=== PATIENT | male | born 1970 | race Caucasian/White ===

== ENCOUNTER 2024-08-12 12:43 | Outpatient (AMB) | payer OTHER, SELFPAY ==
--- NOTE | 2024-08-12 12:57 | MHC.OFFWIV ---
Intake Vital Signs 08/12/24 12:58 Height 5 ft 11 in Weight 198 lb BMI 27.6 BP 134/98 H Blood Pressure Location Lt brachial Position Sitting Pulse 68 Pulse Source Pulse Oximeter Pulse Oximetry (%) 98 Oxygen Delivery Method Room Air Intake Visit Reasons: SHUTTLE HAND RT toe injury Intake Note: Patient here for big toe on right foot pain, he states he takes a martial arts class and a couple weeks ago he turned and kicked someone in the ankle with force and since then it has not felt right Patient Tobacco Use Status: Never used Tobacco Allergies No Known Allergies Allergy (Verified 08/12/24 13:00) Do you need a note to return to daycare/school/sports/work: No HPI HPI Comments History of Present Illness Details Patient is a 54-year-old male who states he has been having right great toe pain for about a month. He states was in his [employer] class when he went to do a violent kick and did not realize there was someone behind him and accidentally kicked a person. He said his toe her immediately but he has been able to walk on it since then. He states it does hurt he has been trying to rest it by wilma taping it but only during his [employer] classes and not any other time. [facility] Social History Patient Tobacco Use Status: Never used Tobacco Review of Systems Const All systems reviewed & are unremarkable except as noted in HPI and below Physical Exam Vital Signs: Last Vital Signs Pulse 68 08/12/24 12:58 BP 134/98 H 08/12/24 12:58 Pulse Ox 98 08/12/24 12:58 Oxygen Delivery Method Room Air 08/12/24 12:58 BMI result Body Mass Index 27.6 Const General: cooperative, healthy appearing, comfortable, no acute distress and well developed Orientation/consciousness: patient oriented x3 Limitations: no limitations HEENT Head: Yes normal to inspection Ears: hearing grossly normal bilaterally General nose exam: Normal external nose present Face and sinus: Yes normal facial exam Eyes General: appearance normal, both eyes and all related structures Neck Neck: Yes normal visual inspection and Yes full ROM Resp Effort & Inspection: normal respiratory effort and able to speak in complete sentences Skin General skin exam: no rashes or lesions noted Neuro General: patient oriented x3 Extrem General: Yes normal to inspection Left lower extremity: foot Details: normal to inspection, tenderness Location: of the great toe Location: at the MTP joint, toes with normal ROM, no edema and vascular exam Details: normal capillary refill; no unusual warmth, no abrasions, no lacerations and no ecchymosis Assessment & Plan Assessment & Plan (1) Metatarsophalangeal (joint) sprain: Code(s): S93.529A - Sprain of metatarsophalangeal joint of unspecified toe(s), initial encounter Qualifiers: Encounter type: initial encounter Qualified Code(s): S93.529A - Sprain of metatarsophalangeal joint of unspecified toe(s), initial encounter Plan: X-ray showed no acute fracture or dislocation, recommended wilma taping and resting ice and Aleve. Plan see above Orders: Orders XR foot RT min 3V Today S93.529A - Sprain of metatarsophalangeal joint of unspecified toe(s), initial encounter Coding Level of Care Code Est Pt Level 3 (30216) Diagnoses Sprain, metatarsophalangeal joint, initial encounter S93.529A Encounter type: initial encounter
[2024-08-12 12:58] VITALS: BP 134/98; PULSE 68; O2SAT 98; BMI 27.6
== END 2024-08-12 13:29 | disposition home or self-care (01) ==
PROVIDERS: PCP Family Medicine; Visit Provider Physician Assistant
DX: S93.529A Sprain of metatarsophalangeal joint of unspecified toe(s), initial encounter (principal)
CPT/HCPCS: 99213

== ENCOUNTER 2024-08-12 13:12 | Outpatient (REF) | payer OTHER, SELFPAY ==
--- NOTE | ~2024-08-12 | XR_ITS ---
EXAMINATION: XR FOOT, RIGHT CLINICAL INFORMATION: Sprain of the MTP joint of the toe. COMPARISON: None available. TECHNIQUE: AP, lateral, and oblique views of the right foot. FINDINGS: Mild 1st MTP osteoarthritis and nonuniform joint space narrowing and marginal osteophytes. A small calcific focus in the lateral margin of the 1st MTP joint may correspond to a capsular calcification or loose body. Additional mild osteoarthritis is present in the interphalangeal joints including the great toe IP joint and second toe DIP joint. No erosions are identified. Midfoot joints appear relatively well preserved. There is osteoarthritis at the talocrural joint which is not well assessed on these views. Soft tissue swelling is noted medial to the 1st MTP joint. XR/XR foot RT min 3V IMPRESSION: Mild 1st MTP osteoarthritis with adjacent soft tissue swelling. No acute fracture or malalignment. Electronically signed by: Mele Bhat MD 08/12/2024 03:17 PM EDT Workstation: [id number]
== END 2024-08-12 13:13 | disposition home or self-care (01) ==
LOC: HO.HMGCX 13:12
PROVIDERS: PCP Family Medicine; Visit Provider Physician Assistant
DX: S93.521A Sprain of metatarsophalangeal joint of right great toe, initial encounter (principal)
CPT/HCPCS: 73630

== ENCOUNTER 2025-01-05 09:54 | Outpatient (AMB) | payer OTHER, SELFPAY ==
--- NOTE | 2025-01-05 10:06 | MHC.PC.OV ---
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 Intake Note: New patient visit Farm Advisor Required: No Allergies No Known Allergies Allergy (Verified 01/05/25 10:06) Medication List - Last Reconciled 01/05/25 by Rad Michael MD No Known Home Meds Tobacco use date assessed: 01/05/25 Dental Screening Dental Screen Date: 01/05/25 Did you have a dental visit in the last 12 months?: Yes Did you have a dental problem in the last 6 months where you did not have access to dental care?: No Was dental information given to patient?: No HPI OFFICE MACHINE SERVICER // Requesting PE HPI Details New?patient Prior?PCP: Dr Charles Last?office?visit/CPE: 3yrs ago Acute?issue(s): PMHx: None/Denies SurgHx: None FHx: Unknown/Unsure SocHx: Nonsmoker, EtOH 2-3 dr on a weekend day. 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 1. Little interest or pleasure in doing things: not at all 2. Feeling down, depressed, or hopeless: not at all 3. Trouble falling or staying asleep, or sleeping too much: not at all 4. Feeling tired or having little energy: not at all 5. Poor appetite or overeating: not at all 6. Feeling bad about yourself - or that you are a failure or have let yourself or your family down: not at all 7. Trouble concentrating on things, such as reading the newspaper or watching television: not at all 8. Moving or speaking so slowly that other people could have noticed. Or the opposite - being so fidgety or restless that you have been moving around a lot more than usual: not at all 9. Thoughts that you would be better off or of hurting yourself in some way: not at all Total score: 0 Depression Screening Interpretation: Negative Depression Screening Done: Yes 84021 - PHQ-9 Billing: Yes Source: Developed by Drs. Cj Pedro, Janki Palencia, Jaskaran Cortes and colleagues, with an educational jared from [employer]. Thrive Questionnaire Date Thrive assessed: 12/29/24 I am a: Patient What is your living situation today?: I have a steady place to live Within the past 12 months, did the food you bought not last and you didn't have the money to get more?: Never true Within the past 12 months, did you worry whether your food would run out before you got money to buy more?: Never true Do you have trouble paying for medicines?: No Do you have trouble getting transportation to medical appointments?: No Do you have trouble paying your heating and electricity bill?: No Do you have trouble taking care of your child, family member or friend?: No Do you have trouble with day-to-day activities such as bathing, preparing meals, shopping, managing finances, etc.?: No Are you currently unemployed and looking for a job?: No Are you interested in more education?: No Please select the resources that you would like help with: None Currently or been in a relationship where the following occur: I choose not to answer THRIVE Score: 0 AUDIT C Alcohol Use Questionnaire (AUDIT-C) 1. How often do you have a drink containing alcohol?: 2-3 times a week 2. How many drinks containing alcohol do you have on a typical day when you are drinking?: 3 or 4 3. How often do you have six or more drinks on one occasion?: Less than monthly Total Score: 5 GERARDO-7 AMB Questionnaire GERARDO-7 Date GERARDO - 7 assessed: 01/05/25 Feeling nervous, anxious, or on edge: 1 = Several days Not being able to stop or control worryin = Not at all Worrying too much about different things: 1 = Several days Trouble relaxin = Not at all Being so restless that it is hard to sit still: 0 = Not at all Becoming easily annoyed or irritable: 1 = Several days Feeling afraid as if something awful might happen: 1 = Several days Total GERARDO-7 score (0-4 normal; 5-9 mild; 10-14 moderate; 15-21 severe): 4 Source: Developed by Drs. Cj Pedro, Janki Palencia, Jaskaran Cortes and colleagues, with an educational jared from [employer]. GERARDO-7 Assessment Billing GERARDO-7 Assessment Tool: GERARDO-7 Assessment 85719 Review of Systems Const Denies chills, Denies fatigue, Denies fever(s), Denies headache(s) and Denies weakness Eyes Denies change in vision ENT Denies dizziness, Denies headache(s), Denies hearing loss, Denies nasal congestion, Denies sinus pain, Denies sinus pressure and Denies sore throat Card Denies chest pain, Denies lightheadedness, Denies dyspnea and Denies other (palpitations) Resp Denies cough, Denies dyspnea and Denies wheezing GI Denies abdominal pain, Denies melena, Denies hematochezia, Denies change in bowel habits, Denies dyspepsia and Denies nausea Denies hematuria and Denies dysuria Musc Denies abnormal gait, Denies myalgias, Denies arthralgias, Denies numbness and Denies tingling Skin/Breast Denies rash, Denies unusual bruising and Denies wounds Neuro Denies abnormal gait, Denies dizziness, Denies headache(s), Denies memory loss, Denies numbness, Denies Sensory deficit (Neuro), Denies tingling and Denies weakness Psych Denies anxiety, Denies depression and Denies memory loss Endo Denies cold intolerance, Denies fatigue, Denies heat intolerance, Denies polydipsia and Denies polyuria Arden/Lymph Denies easy bleeding and Denies easy bruising Aller/Immun Denies wheezing Physical exam (Primary Care) Vital Signs: Last Vital Signs Pulse 73 01/05/25 10:08 Resp 16 01/05/25 10:08 BP 126/88 01/05/25 10:08 Pulse Ox 100 02/05/25 10:08 Oxygen Delivery Method Room Air 01/05/25 10:08 BMI result Body Mass Index 27.8 Tobacco/Smoking Status: Tobacco use Status Tobacco use date assessed 01/05/25 01/05/25 10:12 Patient Tobacco Use Status Never used Tobacco 01/05/25 10:12 e-Cigarette/Vaping Use Never Used 01/05/25 10:12 PHQ-9: PHQ-9 Score PHQ-9: Total score 0 01/05/25 10:38 Depression Screening Interpretation: Negative Thrive Assessment: Date of Thrive Assessment Date Thrive assessed 12/29/24 01/05/25 10:12 Currently or been in a relationship where the following occur: I choose not to answer Const General: no acute distress, well developed, alert and awake Nutritional Appearance: well nourished Orientation/consciousness: patient oriented x3 HENMT Head: Yes normocephalic and Yes atraumatic Ears: hearing grossly normal bilaterally and TM's normal bilaterally General nose exam: Normal external nose present and Normal nares present Mouth: Normal oral and palatal mucosa present and moist mucous membranes Teeth and gingiva: dentition normal Throat: Yes posterior oropharynx normal Eyes General: appearance normal, both eyes and all related structures Pupils: Equal, round and reactive pupils present and Pupil accommodation reflex normal EOM: EOMs intact bilaterally Neck Neck: Yes normal visual inspection, Yes no lymphadenopathy and Yes trachea midline Thyroid: Thyroid normal Carotids: no bruits Lymphatic: no lymphadenopathy noted Chest Chest palpation & inspection: normal inspection of the chest Resp Effort & Inspection: normal respiratory effort Auscultation: clear to auscultation bilaterally Cardio Rate: regular rate Rhythm: regular rhythm Heart sounds: S1 normal heart sound present, S2 normal heart sound present, no gallops, no murmurs and no rubs Bruits: no abdominal aortic bruits and no carotid bruits GI Palpation (GI): No Abdominal aortic bruit present, Soft to palpation, nontender, No hepatosplenomegaly present and No Rebound tenderness present Auscultation: normal bowel sounds General: Yes no CVA tenderness Back/Spine/Pelvis Back: no CVA tenderness Cervical Spine: cervical ROM normal and No Cervical spine tenderness Thoracic/Lumbar Spine: thoraco-lumbar ROM normal, No pain with thoraco-lumbar ROM, No thoracic spinal tenderness and No lumbar spinal tenderness Skin Lesions: no lesions Rashes: no rashes Trauma: no lacerations or abrasions Wounds: no wounds Nails: normal Neuro General: patient oriented x3 Cranial nerves: Yes Equal, round and reactive pupils present Cognition (Neuro): normal cognition Gait exam (Neuro): Normal gait present Motor exam (neuro): 5/5 motor strength present throughout Sensory Exam: No Sensory deficit (Neuro) Deep tendon reflexes (DTR's): Right patellar reflex intensity grade: 2+ and Left patellar reflex intensity grade: 2+ Extrem General: Yes normal to inspection and No edema Psych Appearance: grossly normal Affect: normal affect Attitude: cooperative Thought process: Normal thought process present Coding Level of Care Code New Pt Level 3 (54283) New Pt Prev Care 40-64y(29287) Diagnoses Adult general medical exam Z00.00 Vision changes H53.9 Screening for prostate cancer Z12.5 Screening for colon cancer Z12.11 Additional Codes GERARDO-7 Assessment Billing - GERARDO-7 Assessment Tool: GERARDO-7 Assessment 78883 ([id number]) PHQ-9 - 47941 - PHQ-9 Billing: Yes ([id number]) Assessment & Plan Assessment & Plan (1) Adult general medical exam: Code(s): Z00.00 - Encounter for general adult medical examination without abnormal findings Category: Medical Plan: 54-year-old?male?presents?for?complete?physical?exam Mild?eye?irritation?but?exam?within?normal?limits?otherwise EKG?showed?normal?sinus?rhythm,?normal?axis,?normal?intervals,?no?hypertrophy,?no?ST-T-wave?changes Encouraged?healthy?diet?with?active?lifestyle?and?plenty?of?exercise (2) Vision changes: Code(s): H53.9 - Unspecified visual disturbance Category: Medical Plan: Eye?irritation?and?vision?changes Referred?to? (3) Screening for prostate cancer: Code(s): Z12.5 - Encounter for screening for malignant neoplasm of prostate Category: Medical Plan: Check?PSA (4) Screening for colon cancer: Code(s): Z12.11 - Encounter for screening for malignant neoplasm of colon Category: Medical Plan: Patient?gets?a?Cologuard?testing?and?last?test?was?-2?years?ago. Up-to-date?and?will?continue?with?screening?next?year Orders: Orders Comprehensive [place]. Panel Fast Today Z00.00 - Encounter for general adult medical examination without abnormal findings Microalbumin, Random (w Creat) Today I10 - Essential (primary) hypertension TSH reflex Free T4 Today Z00.00 - Encounter for general adult medical examination without abnormal findings AMB EKG-In Office Today Z00.00 - Encounter for general adult medical examination without abnormal findings Prostate Specific Antigen Scr Today Z12.5 - Encounter for screening for malignant neoplasm of prostate Lipid Panel Today Z00.00 - Encounter for general adult medical examination without abnormal findings UA and rflx microscopic Today Z00.00 - Encounter for general adult medical examination without abnormal findings Referrals Ophthalmology Referral H53.9 - Unspecified visual disturbance
[2025-01-05 10:08] VITALS: BP 126/88; PULSE 73; RESP 16; O2SAT 100; BMI 27.8
== END 2025-01-05 11:04 | disposition home or self-care (01) ==
PROVIDERS: PCP Family Medicine; Visit Provider Family Medicine
DX: Z00.00 Encounter for general adult medical examination without abnormal findings (principal); H53.9 Unspecified visual disturbance; Z12.5 Encounter for screening for malignant neoplasm of prostate; Z12.11 Encounter for screening for malignant neoplasm of colon

== ENCOUNTER → 2025-01-05 09:54 | Outpatient (BNVA) | payer OTHER, SELFPAY | PROVIDERS: PCP Family Medicine; Visit Provider Family Medicine | DX: Z00.01 Encounter for general adult medical examination with abnormal findings (principal); H53.9 Unspecified visual disturbance | CPT/HCPCS: 93005; 96127; 99202; 99386 ==

== ENCOUNTER 2025-01-05 11:14 | Outpatient (REF) | payer OTHER, SELFPAY ==
[2025-01-05 14:10] LABS: Appearance Urine Clear; Color Urine Yellow; Glucose Urine UA Negative (Negative); Leukocyte Esterase Urine Negative (Negative); Nitrite Urine Negative (Negative); PH 6.5 (5.0-9.0); Urine Blood Negative (Negative); Urine Ketones Negative (Negative); Urine Protein Negative (Neg-Trace)
[2025-01-05 14:26] LABS: Alanine Aminotransferase 26 U/L (0-40); Albumin Level 4.5 g/dL (3.5-5.0); Alkaline Phosphatase 78 U/L (39-117); Anion Gap 8 (12-20); Aspartate Amino Transferase 55 U/L (5-37); Bilirubin Total 0.7 mg/dL (0.0-1.0); Blood Urea Nitrogen 12 mg/dL (9-16); Calcium 8.8 mg/dL (8.4-10.2); Carbon Dioxide 28 mmol/L (22-29); Chloride 107 mmol/L (96-108); Cholesterol 196 mg/dL (<200); Estimated Glomerular Filt Rate > 60; Glucose Fasting 88 mg/dL (60-99); HDL Cholesterol 51 mg/dL (>40); LDL Cholesterol Calculated 134 mg/dL (<100); Potassium 3.9 mmol/L (3.3-5.1); Sodium 139 mmol/L (135-145); Total Protein 7.8 g/dL (6.5-8.0); Triglycerides 57 mg/dL (<150)
[2025-01-05 14:34] LABS: Creatinine Urine 64.69 mg/dL; Microalbumin Urine < 5.0 mg/L
[2025-01-05 14:37] LABS: Prostate Specific Antigen Scr 2.32 ng/mL (<0.05-4.0)
== END 2025-01-05 11:15 | disposition home or self-care (01) ==
LOC: HO.WFDLDS 11:14
PROVIDERS: Visit Provider Family Medicine
DX: Z00.00 Encounter for general adult medical examination without abnormal findings (principal); I10 Essential (primary) hypertension; Z12.5 Encounter for screening for malignant neoplasm of prostate
CPT/HCPCS: 36415; 80053; 80061; 81003; 82570; 84153; 84443

== ENCOUNTER 2025-01-27 10:29 | Outpatient (AMB) | payer OTHER, SELFPAY ==
--- NOTE | 2025-01-27 10:22 | A.OFFPC_ITS ---
Intake Visit Reasons: f/u CPE-Labs Allergies No Known Allergies Allergy (Verified 01/27/25 10:22) Tobacco use date assessed: 01/05/25 Dental Screening Dental Screen Date: 01/05/25 HPI f/u CPE-Labs HPI Details 54 y/o male presents to f/u labs via tel emedicine. Labs drawn 01/05/25. Reviewed labs with pt. Elevated AST of 55, ALT 26. Triglycerides 57. TC 196. LDL 134. HDL 51. PSA 2.32. TSH 2.10. 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 Current occupational exposures/hazards: No Cognitive needs: No Hearing needs: No Vision needs: No Questionnaire Thrive Questionnaire Date Thrive assessed: 12/29/24 I am a: Patient What is your living situation today?: I have a steady place to live Within the past 12 months, did the food you bought not last and you didn't have the money to get more?: Never true Within the past 12 months, did you worry whether your food would run out before you got money to buy more?: Never true Do you have trouble paying for medicines?: No Do you have trouble getting transportation to medical appointments?: No Do you have trouble paying your heating and electricity bill?: No Do you have trouble taking care of your child, family member or friend?: No Do you have trouble with day-to-day activities such as bathing, preparing meals, shopping, managing finances, etc.?: No Are you currently unemployed and looking for a job?: No Are you interested in more education?: No Please select the resources that you would like help with: None Currently or been in a relationship where the following occur: I choose not to answer THRIVE Score: 0 GERARDO-7 AMB Questionnaire GERARDO-7 Date GERARDO - 7 assessed: 01/05/25 Source: Developed by Drs. Cj Pedro, Janki Palencia, Jaskaran Cortes and colleagues, with an educational jared from [employer]. Review of Systems Const Denies chills, Denies fatigue, Denies fever(s), Denies headache(s) and Denies weakness ENT Denies dizziness and Denies headache(s) Card Denies dyspnea Resp Denies cough, Denies dyspnea, Denies wheezing and Denies other (shortness of breath) Musc Denies numbness and Denies tingling Neuro Denies dizziness, Denies headache(s), Denies numbness, Denies tingling and Denies weakness Psych Denies anxiety and Denies depression Endo Denies fatigue Aller/Immun Denies wheezing Physical exam (Primary Care) Tobacco/Smoking Status: Tobacco use Status Tobacco use date assessed 01/05/25 01/27/25 10:23 Patient Tobacco Use Status Never used Tobacco 01/27/25 10:23 e-Cigarette/Vaping Use Never Used 01/27/25 10:23 Thrive Assessment: Date of Thrive Assessment Date Thrive assessed 12/29/24 01/27/25 10:23 Currently or been in a relationship where the following occur: I choose not to answer Telehealth Telehealth Telehealth Platform: Telephone Location of provider rendering services: practice address Location of patient: address on file Patient Identification confirmed using: Name, : Yes Telehealth method: voice only Patient verbally consented to treatment: Yes Patient verbally consented to billing insurance company: Yes Patient informed of any privacy concerns related to visit: Yes Minutes spent on Phone/Video with Pt.: 12 Coding Level of Care Code Tele Est Pt Level 2 (82850) Diagnoses Hypercholesterolemia E78.00 Elevated AST (SGOT) R74.01 Screening for prostate cancer Z12.5 Assessment & Plan Assessment & Plan (1) Hypercholesterolemia: Code(s): E78.00 - Pure hypercholesterolemia, unspecified Category: Medical Plan: LDL?cholesterol?is?elevated Encouraged?a?diet?lower?in?saturated?fats?and?cholesterol.??Encouraged?weight?lo ss?and?exercise He?is?getting?blood?drawn?again?in?a?couple?of?months?and?we? will?recheck?lipids?than?as?well (2) Elevated AST (SGOT): Code(s): R74.01 - Elevation of levels of liver transaminase levels Category: Medical Plan: Elevated?AST Patient?says?that?he?had?a?glass?or?2?of?wine?per?night?or?several?times?a?week. ??He?is?already?discontinued?this. Encouraged?good?hydration?and?he?is?already?working?on?weight?loss Will?recheck?liver?enzymes?in?a?couple?of?months (3) Screening for prostate cancer: Code(s): Z12.5 - Encounter for screening for malignant neoplasm of prostate Category: Medical Plan: PSA?was?within?normal?range Will?continue?annual?screening Orders: Orders Lipid Panel Today E78.00 - Pure hypercholesterolemia, unspecified, Z00.00 - Encounter for general adult medical examination without abnormal findings Comprehensive [place]. Panel Fast Today R74.01 - Elevation of levels of liver transaminase levels, Z00.00 - Encounter for general adult medical examination without abnormal findings
== END 2025-01-27 14:24 | disposition home or self-care (01) ==
LOC: HO.HMCFM 10:29
PROVIDERS: PCP Family Medicine; Visit Provider Family Medicine
DX: E78.00 Pure hypercholesterolemia, unspecified (principal); R74.01 Elevation of levels of liver transaminase levels; Z12.5 Encounter for screening for malignant neoplasm of prostate

== ENCOUNTER 2025-03-31 09:14 | Outpatient (REF) | payer OTHER, SELFPAY ==
[2025-03-31 12:28] LABS: Alanine Aminotransferase 25 U/L (0-40); Albumin Level 4.2 g/dL (3.5-5.0); Alkaline Phosphatase 76 U/L (39-117); Anion Gap 10 (12-20); Aspartate Amino Transferase 51 U/L (5-37); Bilirubin Total 0.9 mg/dL (0.0-1.0); Blood Urea Nitrogen 13 mg/dL (9-16); Calcium 8.9 mg/dL (8.4-10.2); Carbon Dioxide 28 mmol/L (22-29); Chloride 105 mmol/L (96-108); Cholesterol 185 mg/dL (<200); Estimated Glomerular Filt Rate > 60; Glucose Fasting 92 mg/dL (60-99); HDL Cholesterol 41 mg/dL (>40); LDL Cholesterol Calculated 128 mg/dL (<100); Potassium 4.1 mmol/L (3.3-5.1); Sodium 139 mmol/L (135-145); Total Protein 7.1 g/dL (6.5-8.0); Triglycerides 83 mg/dL (<150)
== END 2025-03-31 09:15 | disposition home or self-care (01) ==
LOC: HO.WFDLDS 09:14
PROVIDERS: Visit Provider Family Medicine
DX: Z00.00 Encounter for general adult medical examination without abnormal findings (principal); E78.00 Pure hypercholesterolemia, unspecified; R74.01 Elevation of levels of liver transaminase levels
CPT/HCPCS: 36415; 80053; 80061

== ENCOUNTER 2025-04-05 11:37 | Outpatient (AMB) | payer OTHER, SELFPAY ==
--- NOTE | 2025-04-05 11:38 | MHC.PC.OV ---
Vital Signs 04/05/25 11:43 Height 5 ft 11 in Weight 192 lb 2 oz BMI 26.8 BP 126/74 Blood Pressure Location Lt brachial Position Sitting Respiration 16 Pulse 62 Pulse Source Pulse Oximeter Temp 97.8 F Temp Source Oral Pulse Oximetry (%) 97 Oxygen Delivery Method Room Air Intake Visit Reasons: f/u elevated liver enzymes Allergies No Known Allergies Allergy (Verified 04/05/25 11:39) Tobacco use date assessed: 04/05/25 Dental Screening Dental Screen Date: 04/05/25 Did you have a dental visit in the last 12 months?: Yes Did you have a dental problem in the last 6 months where you did not have access to dental care?: Yes Was dental information given to patient?: No HPI f/u elevated liver enzymes HPI Details 54 y/o male presents to f/u elevated liver enzymes, labs. Labs drawn 03/31/25. Reviewed labs with pt. Ongoing elevated AST - 51. Triglycerides 83. TC 185. LDL 128. HDL 41. HPI Comments History of Present Illness Details Documentation assistance for Rad Michael MD, was provided by Sg Lopez,? Offset Label Rewinder on 04/05/2025 at 12:09 PM EST. I, Dr. Michael, have read, observed, and verified documentation. ?? [facility] Surgical History (Updated 01/05/25 @ 10:08 by Genevieve Simmons CMA) No pertinent past surgical history Social History (Updated 01/05/25 @ 10:08 by Genevieve Simmons CMA) Housing: House Alcohol intake: current Patient Tobacco Use Status: Never used Tobacco e-Cigarette/Vaping Use: Never Used Second Hand Smoke Exposure: No service: No Current occupational status: employed Current occupation: Travellution production painter Current occupational exposures/hazards: No Cognitive needs: No Hearing needs: No Vision needs: No Questionnaire PHQ-9 Over the last 2 weeks, how often have you been bothered by any of the following problems? 1. Little interest or pleasure in doing things: not at all 2. Feeling down, depressed, or hopeless: not at all 3. Trouble falling or staying asleep, or sleeping too much: not at all 4. Feeling tired or having little energy: not at all 5. Poor appetite or overeating: not at all 6. Feeling bad about yourself - or that you are a failure or have let yourself or your family down: not at all 7. Trouble concentrating on things, such as reading the newspaper or watching television: not at all 8. Moving or speaking so slowly that other people could have noticed. Or the opposite - being so fidgety or restless that you have been moving around a lot more than usual: not at all 9. Thoughts that you would be better off or of hurting yourself in some way: not at all Total score: 0 Depression Screening Interpretation: Negative Depression Screening Done: Yes 92008 - PHQ-9 Billing: Yes Source: Developed by Drs. Cj Pedro, Janki Palencia, Jaskaran Cortes and colleagues, with an educational jared from [employer]. Thrive Questionnaire Date Thrive assessed: 04/05/25 I am a: Patient What is your living situation today?: I have a steady place to live Within the past 12 months, did the food you bought not last and you didn't have the money to get more?: Never true Within the past 12 months, did you worry whether your food would run out before you got money to buy more?: Never true Do you have trouble paying for medicines?: No Do you have trouble getting transportation to medical appointments?: No Do you have trouble paying your heating and electricity bill?: No Do you have trouble taking care of your child, family member or friend?: No Do you have trouble with day-to-day activities such as bathing, preparing meals, shopping, managing finances, etc.?: No Are you currently unemployed and looking for a job?: No Are you interested in more education?: No Please select the resources that you would like help with: None Currently or been in a relationship where the following occur: I choose not to answer THRIVE Score: 0 GERARDO-7 AMB Questionnaire GERARDO-7 Date GERARDO - 7 assessed: 04/05/25 Source: Developed by Drs. Cj Pedro, Janki Palencia, Jaskaran Cortes and colleagues, with an educational jared from [employer]. Review of Systems Const Denies chills, Denies fatigue, Denies fever(s), Denies headache(s) and Denies weakness ENT Denies dizziness and Denies headache(s) Card Denies dyspnea Resp Denies cough, Denies dyspnea, Denies wheezing and Denies other (shortness of breath) Musc Denies numbness and Denies tingling Neuro Denies dizziness, Denies headache(s), Denies numbness, Denies tingling and Denies weakness Psych Denies anxiety and Denies depression Endo Denies fatigue Aller/Immun Denies wheezing Physical exam (Primary Care) Vital Signs: Last Vital Signs Temp 97.8 F 04/05/25 11:43 Pulse 62 04/05/25 11:43 Resp 16 04/05/25 11:43 BP 126/74 04/05/25 11:43 Pulse Ox 97 04/05/25 11:43 Oxygen Delivery Method Room Air 04/05/25 11:43 BMI result Body Mass Index 26.8 Tobacco/Smoking Status: Tobacco use Status Tobacco use date assessed 04/05/25 04/05/25 11:43 Patient Tobacco Use Status Never used Tobacco 04/05/25 11:43 e-Cigarette/Vaping Use Never Used 04/05/25 11:43 PHQ-9: PHQ-9 Score PHQ-9: Total score 0 04/05/25 12:10 Depression Screening Interpretation: Negative Thrive Assessment: Date of Thrive Assessment Date Thrive assessed 04/05/25 04/05/25 11:43 Currently or been in a relationship where the following occur: I choose not to answer Const General: well developed; No acute distress Nutritional Appearance: well nourished Orientation/consciousness: patient oriented x3 HENMT Head: Yes normocephalic and Yes atraumatic Eyes General: appearance normal, both eyes and all related structures Pupils: Equal, round and reactive pupils present EOM: EOMs intact bilaterally Resp Effort & Inspection: normal respiratory effort Auscultation: clear to auscultation bilaterally Cardio Rate: regular rate Rhythm: regular rhythm Heart sounds: S1 normal heart sound present, S2 normal heart sound present, no gallops, no murmurs and no rubs Neuro General: patient oriented x3 and gait normal Cranial nerves: Yes Equal, round and reactive pupils present Psych Affect: normal affect Coding Level of Care Code Est Pt Level 3 (68920) Diagnoses Elevated AST (SGOT) R74.01 Hypercholesterolemia E78.00 Additional Codes PHQ-9 - 64781 - PHQ-9 Billing: Yes ([id number]) Assessment & Plan Assessment & Plan (1) Elevated AST (SGOT): Code(s): R74.01 - Elevation of levels of liver transaminase levels Category: Medical Plan: AST?has?decreased?slightly?with some?weight?loss,?good?hydration?and?he?not?had?alcohol. He?will?continue?lifestyle?changes?and?we?can?recheck?in?a?few?months. (2) Hypercholesterolemia: Code(s): E78.00 - Pure hypercholesterolemia, unspecified Category: Medical Plan: LDL?cholesterol?decreased?with improvements?in?diet?and?some?weight?loss. Continue?working?at?lifestyle?changes Will?recheck?in?a?few?months. Orders: Orders Comprehensive [place]. Panel Fast Today R74.01 - Elevation of levels of liver transaminase levels, Z00.00 - Encounter for general adult medical examination without abnormal findings Lipid Panel Today E78.00 - Pure hypercholesterolemia, unspecified, Z00.00 - Encounter for general adult medical examination without abnormal findings
[2025-04-05 11:43] VITALS: BP 126/74; PULSE 62; RESP 16; TEMP 36.6; O2SAT 97; BMI 26.8
== END 2025-04-05 12:22 | disposition home or self-care (01) ==
LOC: HO.HMCFM 11:38
PROVIDERS: PCP Family Medicine; Visit Provider Family Medicine
DX: R74.01 Elevation of levels of liver transaminase levels (principal); E78.00 Pure hypercholesterolemia, unspecified

== ENCOUNTER → 2025-04-05 11:37 | Outpatient (BNVA) | payer OTHER, SELFPAY | PROVIDERS: PCP Family Medicine; Visit Provider Family Medicine | DX: R74.01 Elevation of levels of liver transaminase levels (principal); E78.00 Pure hypercholesterolemia, unspecified | CPT/HCPCS: 96127; 99212 ==

== ENCOUNTER 2025-07-02 10:50 | Outpatient (REF) | payer OTHER, SELFPAY ==
[2025-07-02 15:06] LABS: Alanine Aminotransferase 24 U/L (0-40); Albumin Level 4.7 g/dL (3.5-5.0); Alkaline Phosphatase 87 U/L (39-117); Anion Gap 10 (12-20); Aspartate Amino Transferase 55 U/L (5-37); Blood Urea Nitrogen 11 mg/dL (9-16); Calcium 9.0 mg/dL (8.4-10.2); Carbon Dioxide 28 mmol/L (22-29); Chloride 107 mmol/L (96-108); Cholesterol 168 mg/dL (<200); Estimated Glomerular Filt Rate > 60; HDL Cholesterol 42 mg/dL (>40); Potassium 4.0 mmol/L (3.3-5.1); Sodium 141 mmol/L (135-145); Total Protein 7.6 g/dL (6.5-8.0); Triglycerides 71 mg/dL (<150)
== END 2025-07-02 10:51 | disposition home or self-care (01) ==
LOC: HO.HMGCLDS 10:50
PROVIDERS: PCP Family Medicine; Visit Provider Family Medicine
DX: Z00.00 Encounter for general adult medical examination without abnormal findings (principal); E78.00 Pure hypercholesterolemia, unspecified; R74.01 Elevation of levels of liver transaminase levels
CPT/HCPCS: 36415; 80053; 80061

== ENCOUNTER 2025-07-08 08:37 | Outpatient (AMB) | payer OTHER, SELFPAY ==
--- NOTE | 2025-07-08 08:41 | MHC.PC.OV ---
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 Labs drawn 07/02/25. [place] labs with pt. Elevated AST of 55. ALT 24.Triglycerides 71. TC 168. LDL 112. HDL 42. 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 Current occupational exposures/hazards: No Cognitive needs: No Hearing needs: No Vision needs: No Questionnaire Thrive Questionnaire Date Thrive assessed: 04/05/25 I am a: Patient What is your living situation today?: I have a steady place to live Within the past 12 months, did the food you bought not last and you didn't have the money to get more?: Never true Within the past 12 months, did you worry whether your food would run out before you got money to buy more?: Never true Do you have trouble paying for medicines?: No Do you have trouble getting transportation to medical appointments?: No Do you have trouble paying your heating and electricity bill?: No Do you have trouble taking care of your child, family member or friend?: No Do you have trouble with day-to-day activities such as bathing, preparing meals, shopping, managing finances, etc.?: No Are you currently unemployed and looking for a job?: No Are you interested in more education?: No Please select the resources that you would like help with: None Currently or been in a relationship where the following occur: I choose not to answer THRIVE Score: 0 GERARDO-7 AMB Questionnaire GERARDO-7 Date GERARDO - 7 assessed: 04/05/25 Source: Developed by Drs. Cj Pedro, Janki Palencia, Jaskaran Cortes and colleagues, with an educational jared from [email or web address]. Review of Systems Const Denies chills, Denies fatigue, Denies fever(s), Denies headache(s) and Denies weakness ENT Denies dizziness and Denies headache(s) Card Denies dyspnea Resp Denies cough, Denies dyspnea, Denies wheezing and Denies other (shortness of breath) Musc Denies numbness and Denies tingling Neuro Denies dizziness, Denies headache(s), Denies numbness, Denies tingling and Denies weakness Psych Denies anxiety and Denies depression Endo Denies fatigue Aller/Immun Denies wheezing Physical exam (Primary Care) Vital Signs: Last Vital Signs Temp 97.0 F 07/08/25 08:45 Pulse 65 07/08/25 08:45 Resp 13 07/08/25 08:45 BP 129/84 07/08/25 08:45 Pulse Ox 100 07/08/25 08:45 Oxygen Delivery Method Room Air 07/08/25 08:45 BMI result Body Mass Index 25.4 Tobacco/Smoking Status: Tobacco use Status Tobacco use date assessed 07/08/25 07/08/25 08:47 Patient Tobacco Use Status Never used Tobacco 07/08/25 08:42 e-Cigarette/Vaping Use Never Used 07/08/25 08:42 Thrive Assessment: Date of Thrive Assessment Date Thrive assessed 04/05/25 07/08/25 08:42 Currently or been in a relationship where the following occur: I choose not to answer Const General: well developed; No acute distress Nutritional Appearance: well nourished Orientation/consciousness: patient oriented x3 HENMT Head: Yes normocephalic and Yes atraumatic Eyes General: appearance normal, both eyes and all related structures Pupils: Equal, round and reactive pupils present EOM: EOMs intact bilaterally Resp Effort & Inspection: normal respiratory effort Neuro General: patient oriented x3 and gait normal Cranial nerves: Yes Equal, round and reactive pupils present Psych Affect: normal affect Coding Level of Care Code Est Pt Level 4 (46828) Diagnoses Elevated AST (SGOT) R74.01 Hypercholesterolemia E78.00 Assessment & Plan Assessment & Plan (1) Elevated AST (SGOT): Code(s): R74.01 - Elevation of levels of liver transaminase levels Category: Medical Plan: Liver enzymes are still elevated mildly. Will check ultrasound of liver Encouraged good hydration He continues to work at healthy diet, exercise and weight loss. Does not drink alcohol (2) Hypercholesterolemia: Code(s): E78.00 - Pure hypercholesterolemia, unspecified Category: Medical Plan: As above, patient has continued to lose weight He is working healthy diet LDL cholesterol continues to decrease and is now 112; very nearly at goal of less 100 He will continue working on lifestyle changes Did discuss Zetia and could be helpful and also discussed OTC supplements such as red yeast rice and lecithin Orders: Orders Lipid Panel Today Z00.00 - Encounter for general adult medical examination without abnormal findings Microalbumin, Random (w Creat) Today I10 - Essential (primary) hypertension UA CC w/rflx Micro + Cult Today Z00.00 - Encounter for general adult medical examination without abnormal findings TSH reflex Free T4 Today Z00.00 - Encounter for general adult medical examination without abnormal findings US abdomen weaver w elastography Today R74.01 - Elevation of levels of liver transaminase levels Comprehensive [place]. Panel Fast Today Z00.00 - Encounter for general adult medical examination without abnormal findings Prostate Specific Antigen Scr Today Z12.5 - Encounter for screening for malignant neoplasm of prostate
[2025-07-08 08:45] VITALS: BP 129/84; PULSE 65; RESP 13; TEMP 36.1; O2SAT 100; BMI 25.4
== END 2025-07-08 09:17 | disposition home or self-care (01) ==
LOC: HO.HMCFM 08:38
PROVIDERS: PCP Family Medicine; Visit Provider Family Medicine
DX: R74.01 Elevation of levels of liver transaminase levels (principal); E78.00 Pure hypercholesterolemia, unspecified

== ENCOUNTER → 2025-07-08 08:37 | Outpatient (BNVA) | payer OTHER, SELFPAY | PROVIDERS: PCP Family Medicine; Visit Provider Family Medicine | DX: I10 Essential (primary) hypertension (principal); E78.00 Pure hypercholesterolemia, unspecified; R74.01 Elevation of levels of liver transaminase levels | CPT/HCPCS: 99212 ==

== ENCOUNTER 2025-09-07 08:43 | Outpatient (REF) | payer OTHER, SELFPAY ==
--- NOTE | ~2025-09-07 | US_ITS ---
EXAMINATION: US ABDOMEN LIMITED WITH LIVER ELASTOGRAPHY CLINICAL INFORMATION: Elevated transaminases. COMPARISON: None available. TECHNIQUE: Real-time imaging of the abdominal viscera. Noninvasive ultrasound liver fibrosis assessment is performed using Karlos ElastPQ point quantification shear wave elastography (2D-SWE) with a C5-2 MHz transducer. Multiple elastography samples are obtained. FINDINGS: PANCREAS: The visualized pancreatic head and body are normal in appearance. The remainder of the pancreas is obscured from visualization by the overlying bowel gas. LIVER: The liver demonstrates top normal size, normal contour and echogenicity. No focal lesion or intrahepatic biliary duct dilatation. The right lobe measures 18.0 cm in length. The left lobe measures 11.5 cm in length. Portal flow is towards the liver (hepatopetal). Shear wave liver elastography median stiffness is 1.38 m/s (reference: normal median stiffness is 1.3 m/s or less). IQR/median stiffness to assess sampling precision is 0.10 (reference: good quality data set is IQR/median stiffness of 0.15 or less). This indicates a quality data set. GALLBLADDER: The gallbladder is physiologically distended without evidence of stones, sludge, polyps, wall thickening or pericholecystic fluid. COMMON BILE DUCT: Normal in caliber measuring 0.2 cm in diameter. RIGHT KIDNEY: No hydronephrosis. No renal calculi or focal parenchymal lesions. The kidney measures 11.1 cm in maximum dimension. FREE FLUID: None. US/US abdomen weaver w elastography IMPRESSION: 1. Essentially normal limited right upper quadrant ultrasound. The liver is grossly normal in echogenicity without focal lesion. Normal bile ducts and gallbladder. 2. Liver elastography: In the absence of other known clinical signs, measurements rule out compensated advanced chronic liver disease. If there are known clinical signs, further testing may be needed for confirmation. REFERENCE: Society of Radiologists in Ultrasound Liver Stiffness Thresholds (2019): LIVER STIFFNESS THRESHOLDS: *Liver Stiffness equal or less than 1.3 m/s: High probability of being normal. *Liver Stiffness less than 1.7 m/s: In the absence of other known clinical signs, rules out compensated advanced chronic liver disease. *Liver Stiffness 1.7-2.1 m/s: Suggestive of compensated advanced chronic liver disease but need further test for confirmation. *Liver Stiffness over 2.1 m/s: Rules in compensated advanced chronic liver disease. *Liver Stiffness over 2.4 m/s: Suggestive of clinically significant portal hypertension. QUALITY OF DATA SET: *IQR/Median value equal or less than 0.15 implies a quality data set. *IQR/Median value over 0.15 implies a poor quality data set. SIGNIFICANT CHANGE FROM PRIOR EXAM: Significant change if liver stiffness measurement is 10% or greater from prior exam. OTHER CONSIDERATIONS: The stage of liver fibrosis may be overestimated in the setting of acute hepatitis, liver inflammation, elevated liver function tests, hepatic vascular congestion, obstructive cholestasis, non-fasting state, and infiltrative diseases such as amyloidosis and lymphoma. In some patients with NAFLD, the liver stiffness thresholds for compensated advanced chronic liver disease may be lower. In causes other than viral hepatitis and NAFLD, liver stiffness thresholds are not well established. Electronically signed by: Mele Carty MD 09/07/2025 09:43 AM EDT
== END 2025-09-07 08:44 | disposition home or self-care (01) ==
LOC: HO.US 08:43
PROVIDERS: PCP Family Medicine; Visit Provider Family Medicine
DX: R74.01 Elevation of levels of liver transaminase levels (principal)
CPT/HCPCS: 76705; 76981

== ENCOUNTER → 2025-09-07 08:45 | Outpatient (BNV) | payer OTHER, SELFPAY | PROVIDERS: PCP Family Medicine; Visit Provider Radiology Diagnostic Radiology | DX: R74.01 Elevation of levels of liver transaminase levels (principal) | CPT/HCPCS: 76705 ==